=== PATIENT | male | born 1945 | race Caucasian/White ===

== ENCOUNTER → 2016-08-08 | Outpatient (CLI) | payer OTHER, MEDICARE ==
[~2016-08-08] MED LIST: APIX1TAB3 PO; ATEN-173 PO; CYAN500T13 PO; DILT-113 PO; FLUT1INH INH; FRS/40 PO; LEVA45AE INH; LNX125 PO; MULT-506 PO; OMEG10007 PO; POTA20TA16 PO; PROP1CAP PO; RXC5 PO; SIMV20TA2 PO; UMEC1INH INH
[2016-08-08 13:36] LABS: BLOOD UREA NITROGEN 13 mg/dl (7-18); BUN/CREATININE RATIO 15.9 (10-20); CALCIUM 9.2 mg/dl (8.5-10.1); CARBON DIOXIDE 27 mmol/L (21-32); CHLORIDE 106 mmol/L (98-107); CREATININE 0.79 mg/dl (0.60-1.40); GLUCOSE 79 mg/dl (70-99); POTASSIUM 3.8 mmol/L (3.5-5.1); SODIUM 142 mmol/L (136-145)
[2016-08-08 13:57] LABS: ALB/GLOB RATIO 1.2 (0.9-2); ALKALINE PHOSPHATASE 75 U/L (45-117); ALT/SGPT 60 U/L (12-78); AST/SGOT 36 U/L (15-37); CHOLESTEROL 176 mg/dl (0-200); CHOLESTEROL/HDL RATIO 4.2; HDL CHOLESTEROL 42 mg/dl; TRIGLYCERIDES 195 mg/dl (0-150); VERY LOW DENSITY LIPOPROT CALC 39 mg/dl
== END | disposition home or self-care (01) ==
LOC: C.LAB 11:28
PROVIDERS: ATTEND Family Medicine
DX: E78.2 Mixed hyperlipidemia (principal); Z11.59 Encounter for screening for other viral diseases

== ENCOUNTER 2016-08-29 07:56 | Inpatient (IN) | payer OTHER, MEDICARE ==
[2016-08-08 12:13] VITALS: BMI 45.0
--- NOTE | 2016-08-08 12:56 | PAT Medication Instructions ---
Service Date Aug 08, 2016. Current Home Medication List Apixaban (Eliquis), 10 MG PO BID Atenolol (Tenormin), 25 MG PO BID Cyanocobalamin (Vitamin B12 500MCG), 2,500 MCG PO QAM Digoxin (Digoxin), 0.125 MG PO QAM Diltiazem Hcl Ext Rel (Tiazac), 180 MG PO QAM Fish Oil ([place]-3), 1,000 MG PO TID Fluticasone Furoate-Vilanterol (Breo Ellipta), 1 DOSE INH HS Furosemide (Lasix), 40 MG PO QAM Levalbuterol Tartrate (Levalbuterol Tartrate Hfa), 2 PUFFS INH PRN Multivitamin (Multivitamin), 1 TAB PO QAM Potassium Ext Rel (Klor-Con), 20 MEQ PO QPM Propafenone Hcl (Rythmol Sr), 225 MG PO Q8H Simvastatin (Zocor), 20 MG PO HS Umeclidinium [place] (Incruse Ellipta), 1 DOSE INH HS Medication Instructions For Your Scheduled Surgery Apixaban (Eliquis), 10 MG PO BID (surgeon will call patient with instructions) - Hold the following medications 2 weeks prior to surgery: Fish Oil ([place]-3), 1,000 MG PO TID - Hold the following medications the morning of surgery: Multivitamin (Multivitamin), 1 TAB PO QAM Furosemide (Lasix), 40 MG PO QAM Cyanocobalamin (Vitamin B12 500MCG), 2,500 MCG PO QAM - Take the following medications the morning of surgery with a sip of water: Propafenone Hcl (Rythmol Sr), 225 MG PO Q8H Levalbuterol Tartrate (Levalbuterol Tartrate Hfa), 2 PUFFS INH PRN (bring with you to hospital on day of surgery) Diltiazem Hcl Ext Rel (Tiazac), 180 MG PO QAM Digoxin (Digoxin), 0.125 MG PO QAM Atenolol (Tenormin), 25 MG PO BID - Take the following medications as scheduled the night before surgery: Simvastatin (Zocor), 20 MG PO HS Umeclidinium [place] (Incruse Ellipta), 1 DOSE INH HS Propafenone Hcl (Rythmol Sr), 225 MG PO Q8H Potassium Ext Rel (Klor-Con), 20 MEQ PO QPM Levalbuterol Tartrate (Levalbuterol Tartrate Hfa), 2 PUFFS INH PRN Fluticasone Furoate-Vilanterol (Breo Ellipta), 1 DOSE INH HS Breo Ellipta Q HS Atenolol (Tenormin), 25 MG PO BID If you have any questions please call us at [phone] or [phone] ( [place]) or [phone]
[2016-08-08 13:03] LABS: BASO % 1.7 %; BASO ABS # 0.09 K/uL (0-0.2); COMPLETE YES; EOS % 6.1 %; HEMATOCRIT 46.4 % (42-52); IG% 0.2 %; LYMPH % 37.2 %; LYMPH ABS # 2.02 K/uL (1.2-3.4); MEAN CELL VOLUME 90.4 fL (80-100); MEAN CORPUSCULAR HEMOGLOBIN 31.8 pg (25-34); MEAN CORPUSCULAR HGB CONC 35.1 g/dl (32-36); MEAN PLATELET VOLUME 9.4 fL (7.4-10.4); NEUT % 42.8 %; PLATELET COUNT 248 K/uL (130-400); RED BLOOD COUNT 5.13 M/uL (4.7-6.1); WHITE BLOOD COUNT 5.43 K/uL (4.8-10.8)
--- NOTE | 2016-08-08 13:20 | DIAGNOSTIC IMAGING REPORT ---
CHEST PREADMISSION(PA/LAT) CLINICAL HISTORY: PAT preoperative evaluation COMPARISON STUDY: No previous studies for comparison. FINDINGS: The bones soft tissues and hemidiaphragms are normal. The cardiomediastinal silhouette is normal. The lungs are clear. The pulmonary vasculature is normal. IMPRESSION: Negative chest. Electronically signed by: Zeeshan Villa M.D. 08/08/2016 1:18 PM Dictated Date/Time: 08/08/2016 1:17 PM
[2016-08-08 13:23] LABS: URINE APPEARANCE CLEAR (CLEAR); URINE BILIRUBIN NEG (NEG); URINE COLOR YELLOW; URINE NITRITE NEG (NEG); URINE SPECIFIC GRAVITY 1.025 (1.000-1.030); UROBILINOGEN NEG (NEG)
[2016-08-08 13:31] LABS: MANUAL MICROSCOPIC REQUIRED? NO; REVIEW REQ? NO
--- NOTE | 2016-08-28 08:40 | HISTORY & PHYSICAL EXAMINATION ---
DATE OF ADMISSION: 08/29/2016 HISTORY OF PRESENT ILLNESS: The patient presents to our office with a complaint of lower back pain radiating down the right leg. He also has some paresthesias along his right foot. Walking 40 yards or standing reproduces pain. He also reports driving 20 minutes or longer will exacerbate his symptoms. He is most comfortable sitting or leaning forward. He has undergone prior lumbar surgery in the without complications. Denies change in bowel or bladder. He has trialed physical therapy without relief. He does not take any medication for pain control. PAST MEDICAL HISTORY: The patient's medical history is significant for COPD, AFib, hypertension, high cholesterol, sleep apnea with the use of CPAP machine at home, obesity. PAST SURGICAL HISTORY: Significant for back surgery roughly 1990 or , hammertoe surgery in 2005. ALLERGIES: None listed. MEDICATIONS: Include: 1. Simvastatin 20 mg a day. 2. Vitamin B12 2500 mcg a day. 3. Atenolol 25 mg twice a day. 4. Lasix 40 mg a day. 5. Potassium 20 mEq daily. 6. Eliquis 5 mg twice a day. 7. Propafenone 225 mg every 8 hours. 8. Digoxin 125 mg a day. 9. [place] 3 fish oil 1000 mg t.i.d. 10. unknown dosage daily. 11. Diltiazem 180 mg a day. 12. Xopenex as needed. 13. Breo once a day. SOCIAL HISTORY: The patient is . Beer is 2 a week. Tobacco he quit in 2016. FAMILY HISTORY: Significant for cancer, hypertension. REVIEW OF SYSTEMS: Significant for difficulty walking, back and leg pain. PHYSICAL EXAMINATION: VITAL SIGNS: 5 feet 11, 330 pounds. HEAD, EYES, EARS, NOSE, AND THROAT: Speech appropriate. CARDIOPULMONARY: Irregular rate and rhythm. ABDOMEN: Soft, nontender. GENITOURINARY: Deferred. NEUROLOGIC: Cranial nerves struggle grossly intact. MUSCULOSKELETAL: Ambulates with a stooped but steady gait. He has a well-healed lumbar incision. Strength is intact bilateral lower extremities. Negative clonus and Babinski. ASSESSMENT: Multilevel neural foraminal stenosis, lumbar spine. PLAN: At this point in time, we have reviewed clinical course. We have discussed surgical intervention which would require revision decompression with instrumented fusion L2-L3, L3-L4, L4-L5 and L5-S1. Risks, benefits, pros, cons, and alternatives were outlined in detail. The patient would like to proceed with the above-mentioned surgical planning. MTDD
[2016-08-29] VITALS (8 sets, daily range): BP systolic 131–175; BP diastolic 73–80; PULSE 52–61; TEMP 36.4–36.9; O2SAT 94–96; Ht 180.3 cm; Wt 148.8 kg
[~2016-08-29] VITALS: Ht 180.3 cm; Wt 148.8 kg
--- NOTE | 2016-08-29 07:29 | History & Physical Bridge Note ---
H&P Re-Evaluation Bridge Note: I have examined the patient, reviewed the History & Physical and in the interval since the performance of the History & Physical I have noted the following changes of clinical significance: No changes noted
[~2016-08-29 07:56] MED LIST changes: +CEFAZOLIN 3000 MG/65 ML D5W IV SCH; +LACTATED RINGER'S 1000ML 1,000 ML IV SCH; -RXC5 PO
[2016-08-29] MEDS ORDERED: MIDAZOLAM HCL 1 MG/ML 2ML VIAL ONE (08:47)
[2016-08-29] MEDS ORDERED: FENTANYL CITRATE INJ 50 MCG/1 ML 2 ML VIAL ONE ×3 (08:47→11:57)
[2016-08-29] MEDS ORDERED: SODIUM CHLORIDE 0.9% PF 50 ML VIAL ONE (09:18)
[2016-08-29] MEDS ORDERED: BUPIVACAINE/EPINEPHRINE 0.5% MPF 1:200,000 30 ML VIAL ONE (09:18)
[2016-08-29] MEDS ORDERED: BACITRACIN 50000 UNIT VIAL ONE (09:18)
[2016-08-29] MEDS ORDERED: THROMBIN FOR SOLN 20000 UNIT KIT ONE (09:19)
[2016-08-29] MEDS ORDERED: LACTATED RINGER'S 1000ML 1,000 ML IV PRN (09:20)
[2016-08-29] MEDS ORDERED: ONDANSETRON INJ 2 MG/ML 2 ML VIAL IV PRN ×2 (09:30→12:30)
[2016-08-29] MEDS ORDERED: MoRPHine SULFATE 10 MG/ML CARP/VIAL IV PRN (09:30)
[2016-08-29] MEDS ORDERED: FENTANYL CITRATE INJ 50 MCG/1 ML 2 ML VIAL IV PRN (09:30)
[2016-08-29] MEDS ORDERED: HYDROmorphone INJ 2 MG/ML SYR/VIAL ONE ×2 (09:51→12:15)
[2016-08-29] MEDS ORDERED: PROPOFOL IV EMULSION 10 MG/ML 20 ML VIAL IV ONE (12:04)
[2016-08-29] MEDS ORDERED: ONDANSETRON INJ 2 MG/ML 2 ML VIAL ONE (12:04)
[2016-08-29] MEDS ORDERED: NEOSTIGMINE METHYLSULFATE 1 MG/ML 10ML VIAL ONE (12:04)
[2016-08-29] MEDS ORDERED: ROCURONIUM BROMIDE 10 MG/ML 5 ML VIAL ONE (12:04)
[2016-08-29] MEDS ORDERED: LIDOCAINE HCL 2% 2 ML VIAL (20MG/ML) ONE (12:04)
[2016-08-29] MEDS ORDERED: GLYCOPYRROLATE INJ 0.2 MG/ML VIAL ONE (12:04)
[2016-08-29] MEDS ORDERED: DEXAMETHASONE SOD INJ 4 MG/ML VIAL ONE (12:04)
[2016-08-29] MEDS ORDERED: PHENYLEPHRINE 100MCG/ML 5ML SYR ONE (12:04)
[2016-08-29] MEDS ORDERED: EpHEDrine SULFATE 50MG/5ML SYR ONE (12:04)
--- NOTE | 2016-08-29 12:12 | DIAGNOSTIC IMAGING REPORT ---
INTRAOPERATIVE RADIOGRAPHS CLINICAL HISTORY: L2-S1 spinal fusion. Fluoroscopy time: 28 seconds. FINDINGS: 4 spot fluoroscopic views of the lumbar spine are presented. There are changes from laminectomy and posterior fusion from L2 through S1. Interpedicular screws are present at all levels. The orthopedic hardware appears intact. IMPRESSION: Intraoperative images from L2 -S1 spinal fusion as above. Electronically signed by: Leonardo Yoon M.D. 08/29/2016 12:11 PM Dictated Date/Time: 08/29/2016 12:10 PM
--- NOTE | 2016-08-29 12:19 | [facility] Post Operative Brief Note ---
Immediate Operative Summary Operative Date Aug 29, 2016. Pre-Operative Diagnosis Multilevel neural foraminal stenosis, lumbar spine Post-Operative Diagnosis Same as preoperative diagnosis Procedure(s) Performed L2-S1 Lumbar Laminectomy, Decompression; Pedicle Screw Fixation;Posteriolateral Fusion; Application of Allograft, Bone Morphogenetic Protein Surgeon Dr Childers Street Cleaner Surgeon(s) Loni Junior Estimated Blood Loss 800ML Findings stenosis Specimens None per surgery
[2016-08-29] MEDS ORDERED: SODIUM CHLORIDE 0.9% 1000ML 1,000 ML IV SCH (12:21)
[2016-08-29] MEDS ORDERED: LORAZEPAM INJ 0.5 MG in SYRINGE 0 ML IV PRN (12:30)
[2016-08-29] MEDS ORDERED: hydrOXYzine HCL 25 MG TAB PO PRN (12:30)
[2016-08-29] MEDS ORDERED: SOD PHOSPHATE/SOD BIPHOSPHATE ENEMA 132 ML BTL PR PRN (12:30)
[2016-08-29] MEDS ORDERED: NALOXONE HCL 0.4 MG/1 ML VIAL/CARP IV PRN ×2 (12:30)
[2016-08-29] MEDS ORDERED: ACETAMINOPHEN 500 MG TAB PO PRN (12:30)
[2016-08-29] MEDS ORDERED: FAMOTIDINE 20 MG TAB PO PRN (12:30)
[2016-08-29] MEDS ORDERED: METOCLOPRAMIDE HCL INJ 5 MG/ML 2 ML VIAL IV PRN (12:30)
[2016-08-29] MEDS ORDERED: LEValbuterol HFA 15GM INHALER INH PRN (12:30)
[2016-08-29] MEDS ORDERED: PROMETHAZINE HCL INJ 12.5 MG in SODIUM CHLORIDE 0.9% 50ML 50 ML IV PRN (12:30)
[2016-08-29] MEDS ORDERED: BISACODYL 10 MG SUPP PR PRN (12:30)
[2016-08-29] MEDS ORDERED: DO NOT ADMINISTER PNEUMOCOCCAL VACCINE PRN ×2 (12:30)
[2016-08-29] MEDS ORDERED: LORAZEPAM 0.5 MG TAB PO PRN (12:30)
[2016-08-29] MEDS ORDERED: ALUMINUM/MAGNESIUM SUSP 30 ML UDC PO PRN (12:30)
[2016-08-29] MEDS ORDERED: MAGNESIUM HYDROXIDE SUSP 30 ML UDC PO PRN (12:30)
[2016-08-29] MEDS ORDERED: ACETAMINOPHEN IV 100 ML IV PRN (12:30)
[2016-08-29] MEDS ORDERED: DO NOT ADMINISTER FLU VACCINE PRN ×3 (12:30)
[2016-08-29] MEDS ORDERED: HYDROmorphone HCL 0.5MG/ML 50 ML CASSETTE ONE (12:46)
--- NOTE | 2016-08-29 13:26 | OPERATIVE REPORT ---
DATE OF OPERATION: 08/29/2016 PREOPERATIVE DIAGNOSIS: Spinal stenosis and spondylolisthesis. POSTOPERATIVE DIAGNOSIS: Same. PROCEDURES PERFORMED: 1. Revision decompression, medial facetectomy and foraminotomy L2-3, L3-4, L4-5, L5-S1. 2. Posterior spinal fusion L2-3, L3-4, L4-5, L5-S1. 3. Placement of posterior segmental instrumentation using Orthros rods and screws as well as a crosslink L2-S1. 4. Placement of locally harvested morcellized autograft in the posterior gutters. 5. Placement of Infuse collagen sponge combined with Mastergraft in the posterior gutters L2-S1. SURGEON: Dr. Childers. OFFICE SUPPORT ASSOCIATE: Loni Junior PA-C. Due to the complex nature of the procedure, the entire surgery was performed with the psychology assistant of Loni Junior PA-C. The gift shop assistant, under direct supervision, was involved in the actual performance of all aspects of the surgical procedure including hemostasis, tissue retraction and incision, instrument management, patient positioning, and wound closure. ANESTHESIA: General. DISPOSITION: The patient awakened and taken to PACU in stable condition. HISTORY OF PATIENT'S PROBLEMS: This is a 70-year-old male who presents with above-mentioned diagnosis. After failing an extensive course of nonoperative care, elected to undergo the above-mentioned procedure. Risks, benefits, pros, cons, and alternatives were outlined in detail preoperatively. PROCEDURE IN DETAIL: The patient was met with preoperatively, case discussed and all questions were addressed. At that point the patient was taken back to operative suite and after undergoing successful general endotracheal intubation via department of anesthesia was placed in prone position on Kenji table atop the Bart frame. All bony prominences were well padded and the eyes were inspected to ensure there was no external pressure placed upon them. At this point, lumbar spine was prepped and draped in normal sterile fashion. Sharp dissection with the assistance of Bovie cautery was performed down to and exposing the remaining lamina and transverse processes of L2, L3, L4, L5 and sacral ala bilaterally. From a caudal to cephalad fashion, a revision complete laminectomy of L5, 4, 3 and 2 was performed, addressing severe central and lateral recess stenosis as well as marked epidural lipomatosis. After this was complete, pedicle screws were then placed in 2, 3, 4, 5 and S1 levels bilaterally with the assistance of fluoroscopy and the appropriate size zack locked into position. We also included a crosslink for additional stability. The transverse processes of L2, L3, L4, L5 and sacral ala were then burred to subcortical bleeding bone. Infuse collagen sponge combined with Mastergraft and locally harvested morcellized autograft was placed in the posterior gutters. A 7 flat SANTI drain was inserted. Incision was closed with 1-0 Vicryl in the fascia, 2-0 Vicryl subcutaneously, 4-0 Monocryl for final skin closure. Steri-Strips and sterile dressing placed. The patient was awakened and taken to PACU in stable condition. I attest to the content of the Intraoperative Record and any orders documented therein. Any exceptio ns are noted below.
--- NOTE | 2016-08-29 13:33 | Anesthesiology Progress Note ---
Anesthesia Post Op Note Date & Time Aug 29, 2016 at 13:32 Vital Signs Pain Intensity: 0 Vital Signs Past 12 Hours Date Time Temp Pulse Resp B/P Pulse Ox O2 Delivery O2 Flow Rate FiO2 08/29/16 13:25 51 16 08/29/16 13:25 51 16 98 08/29/16 13:24 148/62 08/29/16 13:20 54 19 08/29/16 13:20 53 19 99 08/29/16 13:19 147/69 08/29/16 13:15 51 13 95 08/29/16 13:15 52 13 08/29/16 13:14 145/71 08/29/16 13:10 52 13 08/29/16 13:10 52 13 96 08/29/16 13:09 142/64 08/29/16 13:05 53 15 08/29/16 13:05 52 15 96 08/29/16 13:04 138/75 08/29/16 13:00 53 13 08/29/16 13:00 52 13 99 08/29/16 12:59 53 13 08/29/16 12:59 53 13 143/71 99 08/29/16 12:54 54 16 147/74 99 08/29/16 12:54 54 16 08/29/16 12:49 55 16 08/29/16 12:49 55 16 126/80 98 08/29/16 12:44 55 12 145/76 98 08/29/16 12:44 55 12 08/29/16 12:40 57 16 108/74 94 Mask 15 08/29/16 12:39 57 20 08/29/16 12:39 57 20 108/74 94 08/29/16 12:34 54 12 129/68 97 08/29/16 12:34 55 12 08/29/16 12:34 36.5 54 14 127/67 97 Mask 15 08/29/16 08:48 36.9 60 20 175/74 94 Room Air Notes Mental Status: alert / awake / arousable, participated in evaluation Pt Amnestic to Procedure: Yes Nausea / Vomiting: adequately controlled Pain: adequately controlled Airway Patency, RR, SpO2: stable & adequate BP & HR: stable & adequate Hydration State: stable & adequate Anesthetic Complications: no major complications apparent Pt doing well. No pain. PACU nurse told to reinforce dressing by Dr. Childers's PA (serosanguinous fluid noted around dressing).
[2016-08-29] MEDS: HYDROmorphone HCL 0.5MG/ML 50 ML CASSETTE IV PRN ×3 (14:15→22:59)
[2016-08-29] MEDS: LACTATED RINGER'S 1000ML 1,000 ML IV SCH ×2 (15:47→21:11)
[2016-08-29] MEDS: PROPAFENONE 225 MG TAB PO SCH ×2 (18:00→22:00)
[2016-08-29] MEDS: CEFAZOLIN IV 3,000 MG in DEXTROSE 5% 50ML 50 ML IV SCH (18:01)
[2016-08-29] MEDS: DEXAMETHASONE INJ 6 MG in SYRINGE 0 ML IV SCH (20:20)
[2016-08-29] MEDS ORDERED: POTASSIUM CHLORIDE 20 MEQ TABCR PO SCH (21:00)
[2016-08-29] MEDS: DOCUSATE SODIUM/SENNA 50/8.6MG TAB PO SCH (21:11)
[2016-08-29] MEDS: SIMVASTATIN 20 MG TAB PO SCH (21:13)
--- NOTE | 2016-08-29 21:25 | Medical Consult ---
Consultation Date of Consultation: Aug 29, 2016. Attending Physician: Guillermo Childers D.O. Reason for Consultation: Post Op Medical Management History of Present Illness 70 year old male with history of Afib, COPD, Hypertension referred for routine post operative management. Patient underwent Lumbar Decompression, Fusion today by Dr. Childers. Patient was seen resting in bed, comfortable. Denies dyspnea, chest pain, dizziness, palpitations. Nausea has resolved. No other symptoms Family History Cancer, Hypertension Social History Smoking Status: Former Smoker Alcohol Use: none Drug Use: none Allergies Coded Allergies: No Known Allergies (Unverified , 08/29/16) Current Inpatient Medications Current Inpatient Medications Medications (Trade) Dose Ordered Sig/Andi Route Start Time Stop Time Status Last Admin Dose Admin Dexamethasone Sodium Phosphate 6 mg/Syringe 1.5 ml @ 1 mls/min Q8H IV 08/29/16 20:00 08/30/16 12:02 08/29/16 20:20 1 MLS/MIN Promethazine HCl/ Sodium Chloride (Phenergan Inj/ Nss 50ml) 50.5 ml @ 202 mls/hr Q6H PRN IV 08/29/16 12:30 09/28/16 12:29 Ondansetron HCl (Zofran Inj) 4 mg Q6H PRN IV 08/29/16 12:30 09/28/16 12:29 Metoclopramide HCl (Reglan Inj) 10 mg Q6H PRN IV 08/29/16 12:30 09/28/16 12:29 Lorazepam 0.5 mg 0.5 mg Q8H PRN PO 08/29/16 12:30 09/28/16 12:29 Lorazepam/Syringe (Ativan Inj/ Syringe) 0.25 ml @ 1 mls/min Q8H PRN IV 08/29/16 12:30 09/28/16 12:29 Pneumococcal Polysaccharide Vaccine 1 ea PRN PRN N/A 08/29/16 12:30 09/28/16 12:29 Influenza Virus Vacc Triv Types A&B 1 ea PRN PRN N/A 08/29/16 12:30 09/28/16 12:29 Polyethylene (Miralax Powder Packet) 17 gm Q6 PO 08/31/16 06:00 09/30/16 05:59 Bisacodyl (Dulcolax Supp) 10 mg DAILY PRN OH 08/29/16 12:30 09/28/16 12:29 Magnesium Hydroxide (Milk Of Magnesia Susp) 30 ml DAILY PRN PO 08/29/16 12:30 09/28/16 12:29 Hydromorphone HCl (Dilaudid Inj) 0.5 mg Q3H PRN IV 08/30/16 06:00 09/13/16 05:59 Oxycodone HCl 5-10mg prn moderate to sev... Q4H PRN PO 08/30/16 06:00 09/13/16 05:59 Cefazolin Sodium 3000 mg/Dextrose 65 ml @ 100 mls/hr Q8H IV 08/29/16 18:00 08/30/16 02:38 08/29/16 18:01 100 MLS/HR Lactated Ringer's (Lr 1000ml) 1,000 ml @ 150 mls/hr Q6H40M IV 08/29/16 15:00 09/28/16 12:20 08/29/16 15:47 150 MLS/HR Acetaminophen 1000 mg 1,000 mg Q8H PRN PO 08/29/16 12:30 09/28/16 12:29 Acetaminophen (Ofirmev Iv) 100 ml @ 400 mls/hr Q8H PRN IV 08/29/16 12:30 09/28/16 12:29 Naloxone HCl (Narcan Inj) 0.1 mg Q5M PRN IV 08/29/16 12:30 09/28/16 12:29 Senna/Docusate Sodium (Senokot S Tab) 2 tab HS PO 08/29/16 21:00 09/28/16 20:59 Sodium Biphosphate/ Sodium Phosphate (Fleet Enema) 132 ml ONE PRN OH 08/29/16 12:30 09/28/16 12:29 Hydroxyzine HCl (Vistaril Tab) 25 mg Q8H PRN PO 08/29/16 12:30 09/28/16 12:29 Al Hydroxide/Mg Hydroxide (Maalox Susp) 30 ml Q6H PRN PO 08/29/16 12:30 09/28/16 12:29 Famotidine (Pepcid Tab) 20 mg Q12 PRN PO 08/29/16 12:30 09/28/16 12:29 Diphenhydramine HCl (Benadryl Cap) 25 mg Q6H PRN PO 08/29/16 12:30 09/28/16 12:29 Miscellaneous Information (Discontinue BIOLOGICS SPECIALIST) 1 ea ONE ONCE N/A 08/30/16 06:00 08/30/16 06:01 Naloxone HCl (Narcan Inj) 0.1 mg Q5M PRN IV 08/29/16 12:30 08/30/16 06:00 Hydromorphone HCl 25 mg 25 mg PRN PRN IV 08/29/16 12:30 08/30/16 06:00 08/29/16 15:13 25 MG Sodium Chloride (Nss 1000ml) 1,000 ml @ 15 mls/hr Q24H IV 08/29/16 12:21 08/30/16 06:00 Atenolol (Tenormin Tab) 25 mg BID PO 08/29/16 21:00 09/28/16 20:59 Digoxin (Lanoxin Tab) 0.125 mg QAM PO 08/30/16 09:00 09/29/16 08:59 Diltiazem HCl (TIAzac CAP) 180 mg QAM PO 08/30/16 09:00 09/29/16 08:59 Levalbuterol (Xopenex Hfa Inhaler) 2 puffs DAILY PRN INH 08/29/16 12:30 09/28/16 12:29 Simvastatin (Zocor Tab) 20 mg HS PO 08/29/16 21:00 09/28/16 20:59 Hydromorphone HCl (Dilaudid Inj) 1 mg Q3H PRN IV 08/30/16 06:00 09/13/16 05:59 Propafenone HCl (Rythmol Tab) 225 mg Q8 PO 08/29/16 22:00 09/28/16 21:59 08/29/16 18:00 225 MG Review of Systems Constitutional- no fever; no weight loss Eyes- no acute visual changes ENT- no sinus drainage; no pharyngitis Pulmonary- no cough, no wheezing, no shortness of breath Cardiac- no chest pain, no palpitations, no orthopnea, no dependent edema GI- no nausea, no vomiting, no diarrhea, no melena, no hematochezia - no dysuria, no hematuria Musculoskeletal- no arthralgias, no myalgias Derm- no rashes, no new skin lesions, no changing skin lesions Hematologic- no unusual bruising, no unusual bleeding Lymphatics- no adenopathy Endocrine- no polyuria or polydipsia; no heat or cold intolerance Neuro- no headaches, no focal neurologic symptoms Psych- no anxiety, no depression Physical Exam Date Time Temp Pulse Resp B/P Pulse Ox O2 Delivery O2 Flow Rate FiO2 08/29/16 18:48 36.4 55 18 144/73 96 Nasal Cannula 2.0 08/29/16 17:12 36.6 59 18 143/78 94 Nasal Cannula 4.0 08/29/16 16:40 Nasal Cannula 4.0 08/29/16 16:17 36.7 56 16 144/80 95 Nasal Cannula 4.0 08/29/16 14:56 54 16 138/73 95 Nasal Cannula 4.0 08/29/16 14:35 Nasal Cannula 4.0 08/29/16 14:31 95 Nasal Cannula 4.0 08/29/16 14:29 36.9 52 16 149/79 95 Nasal Cannula 4.0 08/29/16 14:02 51 16 98 08/29/16 14:02 51 16 08/29/16 14:00 151/67 08/29/16 13:57 52 16 97 08/29/16 13:57 51 16 08/29/16 13:55 142/73 08/29/16 13:52 51 16 08/29/16 13:52 51 16 97 08/29/16 13:50 141/75 08/29/16 13:47 51 16 08/29/16 13:47 51 16 97 08/29/16 13:45 144/68 08/29/16 13:42 55 15 08/29/16 13:42 55 15 96 08/29/16 13:41 55 17 161/60 93 08/29/16 13:41 55 17 08/29/16 13:36 52 16 08/29/16 13:36 51 16 98 08/29/16 13:35 135/70 08/29/16 13:35 37.2 08/29/16 13:31 52 16 08/29/16 13:31 52 16 97 08/29/16 13:30 129/72 08/29/16 13:29 148/62 08/29/16 13:28 148/62 08/29/16 13:26 51 16 08/29/16 13:26 51 16 97 08/29/16 13:25 51 16 08/29/16 13:25 51 16 98 08/29/16 13:24 148/62 08/29/16 13:20 54 19 08/29/16 13:20 53 19 99 08/29/16 13:19 147/69 08/29/16 13:15 51 13 95 08/29/16 13:15 52 13 08/29/16 13:14 145/71 08/29/16 13:10 52 13 08/29/16 13:10 52 13 96 08/29/16 13:09 142/64 08/29/16 13:05 53 15 08/29/16 13:05 52 15 96 08/29/16 13:04 138/75 08/29/16 13:00 53 13 08/29/16 13:00 52 13 99 08/29/16 12:59 53 13 08/29/16 12:59 53 13 143/71 99 08/29/16 12:54 54 16 147/74 99 08/29/16 12:54 54 16 08/29/16 12:49 55 16 08/29/16 12:49 55 16 126/80 98 08/29/16 12:44 55 12 145/76 98 08/29/16 12:44 55 12 08/29/16 12:40 57 16 108/74 94 Mask 15 08/29/16 12:39 57 20 08/29/16 12:39 57 20 108/74 94 08/29/16 12:34 54 12 129/68 97 08/29/16 12:34 55 12 08/29/16 12:34 36.5 54 14 127/67 97 Mask 15 08/29/16 08:48 36.9 60 20 175/74 94 Room Air General Appearance: WD/WN, no apparent distress Head: normocephalic, atraumatic Eyes: normal inspection, EOMI, sclerae normal ENT: hearing grossly normal Neck: supple Respiratory/Chest: chest non-tender, lungs clear, normal breath sounds, no respiratory distress, no accessory muscle use Cardiovascular: regular rate, rhythm, no edema, no JVD Abdomen/GI: normal bowel sounds, non tender, soft Extremities/Musculoskelatal: no calf tenderness, normal capillary refill, no pedal edema Neurologic/Psych: primer charging tool setter II-XII nml as tested, no motor/sensory deficits, alert, normal mood/affect, normal reflexes, oriented x 3 Skin: normal color, warm/dry, no rash Lymphatic: no adenopathy Assessment & Plan ATRIAL FIBRILLATION HR stable continue Digoxin, Propefanone, Atenolol, Diltiazem resume Eliquis when ok with Ortho monitor Hg HYPERTENSION stable monitor hold Lasix, K to prevent dehydration COPD stable continue Breo GIOVANNA continue CPAP Thank you for this consultation. We will follow the patient with you during their hospital stay. You can reach a [facility] via pager @ .
[2016-08-30] VITALS (9 sets, daily range): BP systolic 133–175; BP diastolic 64–91; PULSE 55–71; TEMP 36.4–36.8; O2SAT 94–96
[2016-08-30] MEDS: CEFAZOLIN IV 3,000 MG in DEXTROSE 5% 50ML 50 ML IV SCH (01:50)
[2016-08-30] MEDS: DEXAMETHASONE INJ 6 MG in SYRINGE 0 ML IV SCH ×2 (03:58→12:13)
[2016-08-30] MEDS: LACTATED RINGER'S 1000ML 1,000 ML IV SCH (03:58)
[2016-08-30] MEDS ORDERED: DC PCA ONE (06:00)
[2016-08-30] MEDS ORDERED: HYDROmorphone INJ 0.5 MG/0.5 ML SYR IV PRN (06:00)
[2016-08-30] MEDS ORDERED: OXYCODONE HCL IR 5 MG TAB (IMMEDIATE RELEASE) PO PRN (06:00)
[2016-08-30] MEDS ORDERED: HYDROmorphone INJ 1 MG/ML SYR IV PRN (06:00)
[2016-08-30] MEDS: PROPAFENONE 225 MG TAB PO SCH ×3 (06:02→21:00)
[2016-08-30 06:05] LABS: BUN/CREATININE RATIO 20.6 (10-20); CALCIUM 8.3 mg/dl (8.5-10.1); POTASSIUM 4.7 mmol/L (3.5-5.1)
[2016-08-30 06:50] LABS: BASO % 0.1 %; BASO ABS # 0.01 K/uL (0-0.2); COMPLETE YES; HEMATOCRIT 38.8 % (42-52); IG% 0.3 %; LYMPH % 8.5 %; LYMPH ABS # 1.02 K/uL (1.2-3.4); MEAN CORPUSCULAR HEMOGLOBIN 32.1 pg (25-34); MEAN CORPUSCULAR HGB CONC 36.1 g/dl (32-36); MEAN PLATELET VOLUME 9.3 fL (7.4-10.4); NEUT % 85.1 %; PLATELET COUNT 231 K/uL (130-400); RED BLOOD COUNT 4.36 M/uL (4.7-6.1); WHITE BLOOD COUNT 11.97 K/uL (4.8-10.8)
[2016-08-30] MEDS ORDERED: NURSING DECISION MEDICATION ORDER SCH (07:00)
[2016-08-30] MEDS ORDERED: RXC5 PO (07:43)
--- NOTE | 2016-08-30 07:44 | Discharge Instructions ---
Discharge Instructions Admission Reason for Admission: Spinal Stenosis Discharge Discharge Diagnosis / Problem: stenosis Discharge Goals Goal(s): Improve function Activity Recommendations Activity Limitations: per Instructions/Follow-up section . Instructions / Follow-Up Instructions / Follow-Up ACTIVITY RECOMMENDATIONS: SELF CARE INSTRUCTIONS AFTER THORACIC/LUMBAR FUSIONS 1. You may walk to your tolerance. It is good exercise for your legs and back. Expect some back and intermittent leg aches and pains. 2. You may perform "counter-top" level activities (make a sandwich, baudilio with a project, etc.). 3. No bending or lifting of more than 10 pounds or back twisting of any nature (roll like a log when turning in bed). 4. You may ride in a car for 20-30 minutes at a time. No driving until after your first visit with your doctor. 5. Frequent changes of position and restricting sitting to 30 minutes at a time will help limit the amount of back spasms and stiffness you may experience. 6. You may discontinue the use of ambulatory aids (cane, crutches, etc.) once your strength and confidence allow. 7. You may principal strategist the shower and let water strike your incision when you arrive home at least once daily. Do not take a tub bath, sit in a hot tub or go into a swimming pool until after your first recheck in the office. SPECIAL CARE INSTRUCTIONS: VERY IMPORTANT TO READ AND REVIEW A. Your surgical incision has been closed with a cosmetic suture under the skin that will dissolve in about 6 weeks. In 14 days, you can use a pair of clean scissors and cut the suture that is left outside of the skin at the ends of your incision. 1. The small skin tapes can be removed 7 days after surgery if they have not fallen off by that point. 2. You may keep the wound open to air as much as possible to promote healing after post-op day number 5 unless told otherwise by your doctor. 3. If you think the wound looks like it is becoming infected (redness or worsening drainage) and/or you are experiencing fever, chill or worsening back pain and muscle spasms, contact the office so that we may evaluate you as soon as possible. B. Complications are uncommon, but please contact us if you have any signs or symptoms of: 1. wound infection (fever higher than 102.5 degrees F, redness, separation of wound, drainage, or increasing pain from the incision) 2. blood clots in legs (pain, swelling, redness and warmth in legs) 3. urinary tract infection (fever higher than 102.5 degrees F, burning upon urination or increased frequency of urination) 4. nerve problems (inability to walk on your toes or heels, numbness, loss of bowel or bladder control) 5. any other symptoms that concern you C. Please call the office at if you have any concerns or questions about your operation or recovery. D. No smoking! Smoking drastically decreases the chance of a solid fusion. E. Do not take any anti-inflammatory medications (Indocin, Advil, Motrin, Aspirin, Naprosyn, etc.) as these may inhibit the chance of a solid fusion. Tylenol is okay to take for pain. MANAGING PAIN AFTER SPINAL SURGERY 1. Narcotic medication is intended for short-term use and will be provided for surgical pain. Surgical pain usually lasts for a period of 4-6 weeks. Narcotic medication includes Percocet, Vicodin, Darvocet, Tylenol #3 or Lortab. 2. Longer-term pain is more appropriately treated with non-narcotic medication such as Tylenol ES. 3. Muscle spasm is not appropriately treated with narcotics. Muscle relaxers such as Soma, Flexeril or Skelaxin can be used along with Tylenol ES. 4. Remember that we all live with some "aches and pains". This is not unusual or uncommon after an injury or as we get older. a. Back pain is expected and may include muscle spasms for 4 to 6 weeks after surgery. The pain should gradually improve. If the pain worsens for no apparent reason, please contact the office. b. Intermittent leg pain may also be experienced and should not be concerned about unless it worsens for no apparent reason. If so, please contact the office. 5. We will provide appropriate medication within the normal guidelines of their prescribed use. We will also be very cautious and aware of potential abuse and extended duration of patients' medication needs. a. Pain medications are for your comfort and to assist with sleep and rest so that the tissue can heal. They are not provided in order to return to normal activity and should not be used through the day. To do so or worsening pain at night can result from ongoing tissue damage and development of tolerance to the prescribed medicine. 6. Please allow 2-3 days to process refills. Prescriptions will not be mailed but must be picked up at the office. FOLLOW UP VISIT: Keep your scheduled follow-up appointment. Any questions, please call the office at . Current Hospital Diet Patient's current hospital diet: Regular Diet Discharge Diet Recommended Diet: Regular Diet Procedures Procedures Performed: L2-S1 Lumbar Laminectomy, Decompression; Pedicle Screw Fixation;Posteriolateral Fusion; Application of Allograft, Bone Morphogenetic Protein Pending Studies Studies pending at discharge: no Laboratory Results Lipid Panel Test 08/08/16 11:58 Range/Units Triglycerides Level 195 H 0-150 mg/dl Cholesterol Level 176 0-200 mg/dl HDL Cholesterol 42 mg/dl LDL Cholesterol Direct 113 mg/dl Cholesterol/HDL Ratio 4.2 LDL Cholesterol, Calculated mg/dl Medical Emergencies . Who to Call and When: Medical Emergencies: If at any time you feel your situation is an emergency, please call 911 immediately. . Non-Emergent Contact Non-Emergency issues call your: Primary Care Provider . "Provider Documentation" section prepared by Guillermo Childers. VTE Core Measure Inpt VTE Proph given/why not?: Kerry aWtkins, SCD's
[2016-08-30] MEDS ORDERED: FUROSEMIDE 40 MG TAB PO SCH (09:00)
[2016-08-30] MEDS: DIGOXIN 0.125 MG TAB PO SCH (09:12)
[2016-08-30] MEDS: DILTIAZEM HCL (TIAzac) 180 MG CAPCR PO SCH (09:13)
--- NOTE | 2016-08-30 17:13 | PROGRESS NOTE ---
DATE: 08/30/2016 HISTORY OF PRESENT ILLNESS: Postop day 1. Back pain controlled. Leg pain improved. Vital signs stable. T-max 36.8. SANTI drained 120 mL. Hematocrit this a.m. 38.8. PHYSICAL EXAMINATION: On exam, patient is sitting at bedside. He has good strength to testing. He appears comfortable. ASSESSMENT: Status post multilevel lumbar decompression and fusion. PLAN: At this time, we will continue physical therapy, advance his bowel regimen, and anticipate home this weekend.
--- NOTE | 2016-08-30 20:53 | Progress Note ---
Medicine Progress Note Date & Time of Visit: Aug 30, 2016 at 20:49. Subjective seen resting in bed, comfortable reports vague abdominal discomfort (+) flatus, no nausea no chest pain, dyspnea, dizziness, palpitations denies other symptoms Objective Last 8 Hrs Date Time Temp Pulse Resp B/P Pulse Ox O2 Delivery O2 Flow Rate FiO2 08/30/16 16:18 55 155/76 08/30/16 15:45 Room Air CPAP 08/30/16 14:57 36.4 57 18 175/91 95 Room Air 08/30/16 13:57 36.8 64 14 148/64 95 Room Air Physical Exam: General- oriented x 3, not in distress Eyes- anicteric Neck- supple, no JVD Lungs- clear to auscultation bilaterally Heart- regular rhythm; no murmur, normal rate Abdomen- normal bowel sounds, soft, nontender Extremities- no pretibial edema, no calf tenderness Neuro- alert, oriented x 3; no gross deficits Skin- warm & dry Laboratory Results: Last 24 Hours Test 08/30/16 05:19 White Blood Count 11.97 K/uL Red Blood Count 4.36 M/uL Hemoglobin 14.0 g/dL Hematocrit 38.8 % Mean Corpuscular Volume 89.0 fL Mean Corpuscular Hemoglobin 32.1 pg Mean Corpuscular Hemoglobin Concent 36.1 g/dl Platelet Count 231 K/uL Mean Platelet Volume 9.3 fL Neutrophils (%) (Auto) 85.1 % Lymphocytes (%) (Auto) 8.5 % Monocytes (%) (Auto) 6.0 % Eosinophils (%) (Auto) 0.0 % Basophils (%) (Auto) 0.1 % Neutrophils # (Auto) 10.19 K/uL Lymphocytes # (Auto) 1.02 K/uL Monocytes # (Auto) 0.72 K/uL Eosinophils # (Auto) 0.00 K/uL Basophils # (Auto) 0.01 K/uL RDW Standard Deviation 41.8 fL RDW Coefficient of Variation 13.0 % Immature Granulocyte % (Auto) 0.3 % Immature Granulocyte # (Auto) 0.03 K/uL Sodium Level 138 mmol/L Potassium Level 4.7 mmol/L Chloride Level 102 mmol/L Carbon Dioxide Level 27 mmol/L Anion Gap 9.0 mmol/L Blood Urea Nitrogen 21 mg/dl Creatinine 1.00 mg/dl Est Creatinine Clear Calc Drug Dose 103.2 ml/min Estimated GFR () 88.6 Estimated GFR (Non- 76.5 BUN/Creatinine Ratio 20.6 Random Glucose 140 mg/dl Calcium Level 8.3 mg/dl Assessment & Plan ATRIAL FIBRILLATION HR stable continue Digoxin, Propefanone, Atenolol, Diltiazem resume Eliquis when hemostasis stable per Ortho SVC monitor Hg ABDOMINAL DISCOMFORT Dyspepsia from Steroids? Stress? (+) bowel sounds and flatus Protonix IV added PRN Maalox, antiemetics monitor HYPERTENSION stable monitor hold Lasix, K to prevent dehydration COPD stable continue Breo GIOVANNA continue CPAP Thank you for this consultation. We will follow the patient with you during their hospital stay. You can reach a member of the [facility] Hospitalist Team 21/01 via pager @ [phone]. Current Inpatient Medications: Current Inpatient Medications Medications (Trade) Dose Ordered Sig/Andi Route Start Time Stop Time Status Last Admin Dose Admin Promethazine HCl/ Sodium Chloride (Phenergan Inj/ Nss 50ml) 50.5 ml @ 202 mls/hr Q6H PRN IV 08/29/16 12:30 09/28/16 12:29 Ondansetron HCl (Zofran Inj) 4 mg Q6H PRN IV 08/29/16 12:30 09/28/16 12:29 08/30/16 18:10 4 MG Metoclopramide HCl (Reglan Inj) 10 mg Q6H PRN IV 08/29/16 12:30 09/28/16 12:29 Lorazepam 0.5 mg 0.5 mg Q8H PRN PO 08/29/16 12:30 09/28/16 12:29 Lorazepam/Syringe (Ativan Inj/ Syringe) 0.25 ml @ 1 mls/min Q8H PRN IV 08/29/16 12:30 09/28/16 12:29 Pneumococcal Polysaccharide Vaccine 1 ea PRN PRN N/A 08/29/16 12:30 09/28/16 12:29 Influenza Virus Vacc Triv Types A&B 1 ea PRN PRN N/A 08/29/16 12:30 09/28/16 12:29 Polyethylene (Miralax Powder Packet) 17 gm Q6 PO 08/31/16 06:00 09/30/16 05:59 Bisacodyl (Dulcolax Supp) 10 mg DAILY PRN [place] 08/29/16 12:30 09/28/16 12:29 Magnesium Hydroxide (Milk Of Magnesia Susp) 30 ml DAILY PRN PO 08/29/16 12:30 09/28/16 12:29 Hydromorphone HCl (Dilaudid Inj) 0.5 mg Q3H PRN IV 08/30/16 06:00 09/13/16 05:59 Oxycodone HCl (Roxicodone Immediate Rel Tab) 5-10mg prn moderate to sev... Q4H PRN PO 08/30/16 06:00 09/13/16 05:59 08/30/16 12:32 5 MG Acetaminophen 1000 mg 1,000 mg Q8H PRN PO 08/29/16 12:30 09/28/16 12:29 Acetaminophen (Ofirmev Iv) 100 ml @ 400 mls/hr Q8H PRN IV 08/29/16 12:30 09/28/16 12:29 Naloxone HCl (Narcan Inj) 0.1 mg Q5M PRN IV 08/29/16 12:30 09/28/16 12:29 Senna/Docusate Sodium (Senokot S Tab) 2 tab HS PO 08/29/16 21:00 09/28/16 20:59 08/29/16 21:11 2 TAB Sodium Biphosphate/ Sodium Phosphate (Fleet Enema) 132 ml ONE PRN NJ 08/29/16 12:30 09/28/16 12:29 Hydroxyzine HCl (Vistaril Tab) 25 mg Q8H PRN PO 08/29/16 12:30 09/28/16 12:29 Al Hydroxide/Mg Hydroxide (Maalox Susp) 30 ml Q6H PRN PO 08/29/16 12:30 09/28/16 12:29 Famotidine (Pepcid Tab) 20 mg Q12 PRN PO 08/29/16 12:30 09/28/16 12:29 Diphenhydramine HCl (Benadryl Cap) 25 mg Q6H PRN PO 08/29/16 12:30 09/28/16 12:29 Atenolol (Tenormin Tab) 25 mg BID PO 08/29/16 21:00 09/28/16 20:59 08/30/16 09:12 25 MG Digoxin (Lanoxin Tab) 0.125 mg QAM PO 08/30/16 09:00 09/29/16 08:59 08/30/16 09:12 0.125 MG Diltiazem HCl (TIAzac CAP) 180 mg QAM PO 08/30/16 09:00 09/29/16 08:59 08/30/16 09:13 180 MG Levalbuterol (Xopenex Hfa Inhaler) 2 puffs DAILY PRN INH 08/29/16 12:30 09/28/16 12:29 Simvastatin (Zocor Tab) 20 mg HS PO 08/29/16 21:00 09/28/16 20:59 08/29/16 21:13 20 MG Hydromorphone HCl (Dilaudid Inj) 1 mg Q3H PRN IV 08/30/16 06:00 09/13/16 05:59 Propafenone HCl (Rythmol Tab) 225 mg Q8 PO 08/29/16 22:00 09/28/16 21:59 08/30/16 13:54 225 MG Fluticasone/ Vilanterol 1 puffs 1 puffs HS INH 08/30/16 21:00 09/29/16 20:59 Pantoprazole Sodium 40 mg/ Syringe 10 ml @ 5 mls/min 2100 ONCE IV 08/30/16 21:00 08/30/16 21:01 Pantoprazole Sodium/Syringe (Protonix Inj/ Syringe) 10 ml @ 5 mls/min DAILY@11 IV 08/31/16 11:00 09/30/16 10:59
[2016-08-30] MEDS: FLUTICASONE FUROATE-VILANTEROL 60 PUFFS INH INH SCH (20:58)
[2016-08-30] MEDS: DOCUSATE SODIUM/SENNA 50/8.6MG TAB PO SCH (21:00)
[2016-08-30] MEDS ORDERED: PANTOprazole INJ 40 MG in SYRINGE 0 ML IV ONE (21:00)
[2016-08-30] MEDS: SIMVASTATIN 20 MG TAB PO SCH (21:00)
[2016-08-31] MEDS: POLYETHYLENE (MIRALAX) 17 GM PACK PO SCH ×4 (05:49→23:47)
[2016-08-31] MEDS: PROPAFENONE 225 MG TAB PO SCH ×3 (05:50→22:07)
[2016-08-31 07:36] VITALS: BP 158/73; PULSE 68; TEMP 36.6; O2SAT 95
[2016-08-31 08:45] VITALS: O2SAT 94
[2016-08-31] MEDS: DILTIAZEM HCL (TIAzac) 180 MG CAPCR PO SCH (09:24)
[2016-08-31] MEDS: DIGOXIN 0.125 MG TAB PO SCH (09:25)
[2016-08-31 11:56] VITALS: BP 153/76; PULSE 72; TEMP 36.5; O2SAT 95
[2016-08-31] MEDS: PANTOprazole INJ 40 MG in SYRINGE 0 ML IV SCH (11:58)
--- NOTE | 2016-08-31 12:08 | PROGRESS NOTE ---
DATE: 08/31/2016 Postop day #2. Back pain controlled. Leg pain improved. Vital signs stable. T-max 36.6. SANTI drained 20 mL. Hematocrit this a.m. is 38.8. On exam, he is sitting up in chair at bedside. Has good strength to testing, appears comfortable. ASSESSMENT: Status post multilevel lumbar decompression and fusion. PLAN: At this time, will continue his bowel regimen, physical therapy, anticipate home tomorrow.
[2016-08-31 15:02] VITALS: BP 125/66; PULSE 53; TEMP 36.8; O2SAT 92
--- NOTE | 2016-08-31 19:59 | Progress Note ---
Medicine Progress Note Date & Time of Visit: Aug 31, 2016 at 19:57. Subjective states he feels better today abdominal pain has resolved, no nausea ambulating with no problems denies chest pain, dyspnea, dizziness, nausea, palpitations no other symptoms Objective Last 8 Hrs Date Time Temp Pulse Resp B/P Pulse Ox O2 Delivery O2 Flow Rate FiO2 08/31/16 16:15 Room Air 08/31/16 15:02 36.8 53 18 125/66 92 Room Air Physical Exam: General- oriented x 3, not in distress Neck- no JVD Lungs- clear to auscultation bilaterally, no rales/wheezes Heart- normal rate, regular rhythm; no murmur Abdomen- normal bowel sounds, soft, nontender Extremities- no pretibial edema, no calf tenderness Neuro- alert, oriented x 3; no gross deficits Skin- warm & dry Assessment & Plan ATRIAL FIBRILLATION HR stable continue Digoxin, Propefanone, Atenolol, Diltiazem resume Eliquis when hemostasis stable per Ortho SVC- discussed with Dr. Childers, may resume starting tomorrow ABDOMINAL DISCOMFORT, resolved Dyspepsia from Steroids? Stress? (+) bowel sounds and flatus Protonix IV added PRN Maalox, antiemetics - resolved HYPERTENSION stable monitor hold Lasix, K to prevent dehydration - possible resume tomorrow COPD stable continue Breo GIOVANNA continue CPAP Thank you for this consultation. We will follow the patient with you during their hospital stay. You can reach a member of the [facility] Hospitalist Team 21/01 via pager @ [phone]. Current Inpatient Medications: Current Inpatient Medications Medications (Trade) Dose Ordered Sig/Andi Route Start Time Stop Time Status Last Admin Dose Admin Promethazine HCl/ Sodium Chloride (Phenergan Inj/ Nss 50ml) 50.5 ml @ 202 mls/hr Q6H PRN IV 08/29/16 12:30 09/28/16 12:29 Ondansetron HCl (Zofran Inj) 4 mg Q6H PRN IV 08/29/16 12:30 09/28/16 12:29 08/30/16 18:10 4 MG Metoclopramide HCl (Reglan Inj) 10 mg Q6H PRN IV 08/29/16 12:30 09/28/16 12:29 Lorazepam 0.5 mg 0.5 mg Q8H PRN PO 08/29/16 12:30 09/28/16 12:29 Lorazepam/Syringe (Ativan Inj/ Syringe) 0.25 ml @ 1 mls/min Q8H PRN IV 08/29/16 12:30 09/28/16 12:29 Pneumococcal Polysaccharide Vaccine 1 ea PRN PRN N/A 08/29/16 12:30 09/28/16 12:29 Influenza Virus Vacc Triv Types A&B 1 ea PRN PRN N/A 08/29/16 12:30 09/28/16 12:29 Polyethylene (Miralax Powder Packet) 17 gm Q6 PO 08/31/16 06:00 09/30/16 05:59 08/31/16 18:08 17 GM Bisacodyl (Dulcolax Supp) 10 mg DAILY PRN [place] 08/29/16 12:30 09/28/16 12:29 Magnesium Hydroxide (Milk Of Magnesia Susp) 30 ml DAILY PRN PO 08/29/16 12:30 09/28/16 12:29 Hydromorphone HCl (Dilaudid Inj) 0.5 mg Q3H PRN IV 08/30/16 06:00 09/13/16 05:59 Oxycodone HCl (Roxicodone Immediate Rel Tab) 5-10mg prn moderate to sev... Q4H PRN PO 08/30/16 06:00 09/13/16 05:59 08/30/16 12:32 5 MG Acetaminophen 1000 mg 1,000 mg Q8H PRN PO 08/29/16 12:30 09/28/16 12:29 Acetaminophen (Ofirmev Iv) 100 ml @ 400 mls/hr Q8H PRN IV 08/29/16 12:30 09/28/16 12:29 Naloxone HCl (Narcan Inj) 0.1 mg Q5M PRN IV 08/29/16 12:30 09/28/16 12:29 Senna/Docusate Sodium (Senokot S Tab) 2 tab HS PO 08/29/16 21:00 09/28/16 20:59 08/30/16 21:00 2 TAB Sodium Biphosphate/ Sodium Phosphate (Fleet Enema) 132 ml ONE PRN AR 08/29/16 12:30 09/28/16 12:29 Hydroxyzine HCl (Vistaril Tab) 25 mg Q8H PRN PO 08/29/16 12:30 09/28/16 12:29 Al Hydroxide/Mg Hydroxide (Maalox Susp) 30 ml Q6H PRN PO 08/29/16 12:30 09/28/16 12:29 Famotidine (Pepcid Tab) 20 mg Q12 PRN PO 08/29/16 12:30 09/28/16 12:29 Diphenhydramine HCl (Benadryl Cap) 25 mg Q6H PRN PO 08/29/16 12:30 09/28/16 12:29 Atenolol (Tenormin Tab) 25 mg BID PO 08/29/16 21:00 09/28/16 20:59 08/31/16 09:24 25 MG Digoxin (Lanoxin Tab) 0.125 mg QAM PO 08/30/16 09:00 09/29/16 08:59 08/31/16 09:25 0.125 MG Diltiazem HCl (TIAzac CAP) 180 mg QAM PO 08/30/16 09:00 09/29/16 08:59 08/31/16 09:24 180 MG Levalbuterol (Xopenex Hfa Inhaler) 2 puffs DAILY PRN INH 08/29/16 12:30 09/28/16 12:29 Simvastatin (Zocor Tab) 20 mg HS PO 08/29/16 21:00 09/28/16 20:59 08/30/16 21:00 20 MG Hydromorphone HCl (Dilaudid Inj) 1 mg Q3H PRN IV 08/30/16 06:00 09/13/16 05:59 Propafenone HCl (Rythmol Tab) 225 mg Q8 PO 08/29/16 22:00 09/28/16 21:59 08/31/16 14:06 225 MG Fluticasone/ Vilanterol 1 puffs 1 puffs HS INH 08/30/16 21:00 09/29/16 20:59 08/30/16 20:58 1 PUFFS Pantoprazole Sodium/Syringe (Protonix Inj/ Syringe) 10 ml @ 5 mls/min DAILY@11 IV 08/31/16 11:00 09/30/16 10:59 08/31/16 11:58 5 MLS/MIN
[2016-08-31 20:41] VITALS: BP 138/71; PULSE 55
[2016-08-31] MEDS: SIMVASTATIN 20 MG TAB PO SCH (20:43)
[2016-08-31] MEDS: DOCUSATE SODIUM/SENNA 50/8.6MG TAB PO SCH (20:43)
[2016-08-31] MEDS: FLUTICASONE FUROATE-VILANTEROL 60 PUFFS INH INH SCH (20:44)
[2016-08-31 22:50] VITALS: BP 126/69; PULSE 54; TEMP 36.5; O2SAT 94
[2016-09-01] MEDS: POLYETHYLENE (MIRALAX) 17 GM PACK PO SCH (05:43)
[2016-09-01] MEDS: PROPAFENONE 225 MG TAB PO SCH (05:47)
[2016-09-01 07:12] VITALS: BP 156/81; PULSE 59; TEMP 36.6; O2SAT 93
[2016-09-01] MEDS: DIGOXIN 0.125 MG TAB PO SCH (09:08)
[2016-09-01] MEDS: DILTIAZEM HCL (TIAzac) 180 MG CAPCR PO SCH (09:08)
[2016-09-01] MEDS: PANTOprazole INJ 40 MG in SYRINGE 0 ML IV SCH (11:00)
[2016-09-01 11:11] VITALS: BP 156/81; PULSE 66; TEMP 36.6; O2SAT 93
[2016-09-01 12:04] VITALS: BP 109/73; PULSE 91; TEMP 36.6; O2SAT 93
--- NOTE | 2016-09-10 07:57 | DISCHARGE SUMMARY ---
PREOPERATIVE DIAGNOSIS: Spinal stenosis and spondylolisthesis. On 08/29/2016, he underwent revision decompression with instrumented fusion L2-S1. Postoperatively, the patient was followed by the [facility] for any ongoing medical issues throughout his hospital stay. Postoperative day 2, back pain controlled, leg pain improved, hematocrit stable at 38.8%. He was doing well in physical therapy. Postoperative day 2, again continued to make progress. Hematocrit stable. Continuing to progress with therapy. He was ultimately discharged home on postoperative day 3. MEDICAL HISTORY: Significant for COPD, Afib, hypertension, hyperlipidemia, sleep apnea with CPAP machine used at home, and obesity. SURGICAL HISTORY: Significant for prior lumbar surgery in early and hammertoe repair in 2005. ALLERGIES: Not listed. MEDICATIONS UPON DISCHARGE: Per chart review. The patient will follow up in our office in 2 weeks to assess his progress and a wound evaluation. Any further questions can be found in chart for review. GUNNAR
== END 2016-09-01 11:37 | disposition home health service (06) | DRG 460 ==
LOC: ENRESERVTM → ENRESERVDT → C.ACU 07:56 → C.3E 09:00
PROVIDERS: ADMIT Orthopaedic Surgery Orthopaedic Surgery of the Spine; ATTEND Orthopaedic Surgery Orthopaedic Surgery of the Spine
PROC: 0SG10Z1 (ICD-10-PCS; 2016-08-29)
PROC: 0SG30Z1 (ICD-10-PCS; principal; 2016-08-29 09:45)
DX: M48.06 Spinal stenosis, lumbar region (principal); Z68.42 Body mass index [BMI] 45.0-49.9, adult; J44.9 Chronic obstructive pulmonary disease, unspecified; I48.91 Unspecified atrial fibrillation; I10 Essential (primary) hypertension; E78.00 Pure hypercholesterolemia, unspecified; G47.33 Obstructive sleep apnea (adult) (pediatric); E66.9 Obesity, unspecified; Z79.899 Other long term (current) drug therapy; Z79.01 Long term (current) use of anticoagulants; Z87.891 Personal history of nicotine dependence; Z80.9 Family history of malignant neoplasm, unspecified; Z82.49 Family history of ischemic heart disease and other diseases of the circulatory system